=== PATIENT | female | born 1950 | race Caucasian/White ===

== ENCOUNTER 2017-11-26 13:14 | Emergency (ER) | payer MEDICARE, MEDICAID ==
[~2017-11-26] VITALS: Ht 165.1 cm; Wt 70.5 kg
[2017-11-26 13:50] VITALS: BP 133/84
== END 2017-11-26 15:07 | disposition home or self-care (01) ==
LOC: ED 15:01
DX: J30.2 Other seasonal allergic rhinitis (principal); H69.83 Other specified disorders of Eustachian tube, bilateral; I10 Essential (primary) hypertension; Z90.710 Acquired absence of both cervix and uterus
CPT/HCPCS: 99283